=== PATIENT | female | born 1985 | race African-American/Black ===

== ENCOUNTER 2017-03-13 03:01 | Emergency (ER) | payer MEDICARE ==
[~2017-03-13] VITALS: Ht 188 cm; Wt 127.0 kg
[2017-03-13] MEDS ORDERED: KETOROLAC 60MG/2ML VIAL IM ONE (04:00)
[2017-03-13 06:34] VITALS: BP 124/81
== END 2017-03-13 06:45 | disposition home or self-care (01) ==
LOC: ER 03:01
DX: R51 Headache (principal); Z88.5 Allergy status to narcotic agent; Z88.8 Allergy status to other drugs, medicaments and biological substances
CPT/HCPCS: 70450; 96372; 99284; J1885; Z7610

== ENCOUNTER 2017-06-18 23:31 | Emergency (ER) | payer MEDICARE ==
[~2017-06-18] VITALS: Ht 188 cm; Wt 125.0 kg
[2017-06-19] MEDS ORDERED: PREDNISONE 20MG TABLET PO ONE (01:15)
[2017-06-19] MEDS ORDERED: KETOROLAC 60MG/2ML VIAL IM ONE (01:15)
[2017-06-19 01:57] VITALS: BP 107/66
== END 2017-06-19 02:21 | disposition home or self-care (01) ==
LOC: ER 23:31
DX: J03.00 Acute streptococcal tonsillitis, unspecified (principal); J45.909 Unspecified asthma, uncomplicated; Z88.5 Allergy status to narcotic agent; Z88.8 Allergy status to other drugs, medicaments and biological substances; Z88.6 Allergy status to analgesic agent
CPT/HCPCS: 96372; 99283; J1885; J7512

== ENCOUNTER 2018-03-14 23:18 | Emergency (ER) | payer MEDICARE ==
[~2018-03-14] VITALS: Ht 188 cm; Wt 118.0 kg
[2018-03-15] MEDS ORDERED: ONDANSETRON HCL 4MG/2ML INJ IV STA (02:22)
[2018-03-15] MEDS ORDERED: MORPHINE SULFATE 4 MG/ML CPJ (NOT FOR IM USE) IV STA (02:22)
[2018-03-15] MEDS ORDERED: DIPHENHYDRAMINE 50MG/ML VIAL IV ONE (02:30)
[2018-03-15 03:14] LABS: BASOPHILS % 0.7 % (0.0-2.0); EOSINOPHILS % 1.8 % (0.0-5.0); HEMATOCRIT. 44.3 % (36.0-48.0); HEMOGLOBIN. 14.8 g/dL (12.0-16.0); LYMPHOCYTES % 21.5 % (20.0-50.0); MEAN CORPUSCULAR HEMOGLOBIN 31.1 pg (28.0-32.0); MEAN CORPUSCULAR VOLUME 93.2 fL (81.0-99.0); MEAN PLATELET VOLUME 8.7 fl (7.4-10.4); PLATELET 216 x1000/uL (130-400); RED BLOOD CELL COUNT 4.75 mill/uL (4.2-5.4); RED CELL DISTRIBUTION WIDTH 13.9 % (11.6-14.6)
[2018-03-15 03:21] LABS: CHLORIDE 104 mEq/L (98-107)
[2018-03-15] MEDS ORDERED: SODIUM CHLORIDE 0.9% 1,000 ML IV ONE (05:16)
[2018-03-15 05:50] LABS: CLARITY URINE CLOUDY (CLEAR); COLOR URINE YELLOW (YELLOW); KETONES URINE NEGATIVE (NEGATIVE); LEUKOCYTE ESTERASE URINE NEGATIVE (NEGATIVE); NITRITE URINE NEGATIVE (NEGATIVE); OCCULT BLOOD URINE NEGATIVE (NEGATIVE); PH URINE 5.5 (4.5-8.0); PROTEIN URINE NEGATIVE (NEGATIVE); SPECIFIC GRAVITY URINE 1.023 (1.005-1.030); UROBILINOGEN URINE 0.2 E.U./dL (0.2-1.0)
[2018-03-15] MEDS ORDERED: VISCOUS LIDOCAINE 2% 15 ML UDC MM STA (06:05)
[2018-03-15 06:47] VITALS: BP 121/75
== END 2018-03-15 06:49 | disposition home or self-care (01) ==
LOC: ER 23:30
DX: J06.9 Acute upper respiratory infection, unspecified (principal); H92.03 Otalgia, bilateral; R03.0 Elevated blood-pressure reading, without diagnosis of hypertension; Z88.5 Allergy status to narcotic agent
CPT/HCPCS: 36415; 71045; 80053; 81003; 81025; 85025; 87804; 96374; 96375; 99285; J1200; J2270; J2405; J7030

== ENCOUNTER 2018-07-21 13:10 | Emergency (ER) | payer MEDICARE ==
[~2018-07-21] VITALS: Ht 188 cm; Wt 118.0 kg
[2018-07-21 15:45] VITALS: BP 103/66
== END 2018-07-21 16:47 | disposition left against medical advice (07) ==
LOC: ER 16:01
DX: Z53.21 Procedure and treatment not carried out due to patient leaving prior to being seen by health care provider (principal)

== ENCOUNTER 2019-09-30 07:34 | Emergency (ER) | payer MEDICARE ==
[~2019-09-30] VITALS: Ht 193 cm; Wt 118.0 kg
[2019-09-30] MEDS ORDERED: ASPI-1497 PO (07:50)
[2019-09-30] MEDS ORDERED: ACETAMINOPHEN 500MG TABLET PO ONE (10:00)
[2019-09-30 10:03] VITALS: BP 110/59
== END 2019-09-30 10:06 | disposition home or self-care (01) ==
LOC: ER 07:34
DX: O99.89 Other specified diseases and conditions complicating pregnancy, childbirth and the puerperium (principal); M79.661 Pain in right lower leg; Z3A.14 14 weeks gestation of pregnancy; O09.522 Supervision of elderly multigravida, second trimester; Z88.5 Allergy status to narcotic agent; Z88.6 Allergy status to analgesic agent; Z88.8 Allergy status to other drugs, medicaments and biological substances
CPT/HCPCS: 93971; 99284

== ENCOUNTER 2019-10-24 03:51 | Emergency (ER) | payer MEDICARE ==
[~2019-10-24] VITALS: Ht 188 cm; Wt 143.0 kg
[~2019-10-24 03:51] MED LIST: ASPI-1497 PO
[2019-10-24 04:34] LABS: BASOPHILS % 0.6 % (0.0-2.0); EOSINOPHILS % 0.7 % (0.0-5.0); HEMATOCRIT. 35.8 % (36.0-48.0); HEMOGLOBIN. 12.5 g/dL (12.0-16.0); LYMPHOCYTES % 20.4 % (20.0-50.0); MEAN CORPUSCULAR HEMOGLOBIN 31.8 pg (28.0-32.0); MEAN CORPUSCULAR VOLUME 91.2 fL (81.0-99.0); MEAN PLATELET VOLUME 8.4 fl (7.4-10.4); MONOCYTES % 5.6 % (2.0-8.0); NEUTROPHILS % 72.7 % (40.0-76.0); PLATELET 221 x1000/uL (130-400); RED BLOOD CELL COUNT 3.92 mill/uL (4.2-5.4); RED CELL DISTRIBUTION WIDTH 13.6 % (11.6-14.6)
[2019-10-24 04:35] LABS: CHLORIDE 106 mEq/L (98-107)
[2019-10-24 05:00] LABS: B-HCG QUANTITATIVE 16828 mIU/mL (<3)
[2019-10-24 05:42] LABS: CLARITY URINE CLEAR (CLEAR); COLOR URINE YELLOW (YELLOW); KETONES URINE NEGATIVE (NEGATIVE); LEUKOCYTE ESTERASE URINE NEGATIVE (NEGATIVE); NITRITE URINE NEGATIVE (NEGATIVE); OCCULT BLOOD URINE NEGATIVE (NEGATIVE); PROTEIN URINE NEGATIVE (NEGATIVE); SPECIFIC GRAVITY URINE 1.012 (1.005-1.030); UROBILINOGEN URINE 0.2 E.U./dL (0.2-1.0)
[2019-10-24] MEDS ORDERED: DIPHENHYDRAMINE 50MG/ML VIAL IV ONE ×3 (06:45→12:30)
[2019-10-24] MEDS ORDERED: MORPHINE SULFATE 2 MG/ML CPJ (NOT FOR IM USE) IV ONE (06:45)
[2019-10-24] MEDS ORDERED: ONDANSETRON HCL 4MG/2ML INJ IV ONE ×2 (06:45→08:30)
[2019-10-24 07:53] LABS: *BENZODIAZEPINES SCREEN URINE NEGATIVE (NEGATIVE); *COCAINE SCREEN URINE NEGATIVE (NEGATIVE)
[2019-10-24 07:54] LABS: *BARBITURATES SCREEN URINE NEGATIVE (NEGATIVE); CANNABINOID URINE SCREEN NEGATIVE (NEGATIVE); METHADONE URINE SCREEN NEGATIVE (NEGATIVE); OPIATES URINE SCREEN NEGATIVE (NEGATIVE); PHENCYCLIDINE URINE SCREEN NEGATIVE (NEGATIVE)
[2019-10-24 07:55] LABS: *AMPHETAMINES SCREEN URINE NEGATIVE (NEGATIVE)
[2019-10-24] MEDS ORDERED: MORPHINE SULFATE 4 MG/ML CPJ (NOT FOR IM USE) IV ONE ×2 (08:30→12:15)
[2019-10-24] MEDS ORDERED: SODIUM CHLORIDE 0.9% 1,000 ML IV ONE (08:30)
[2019-10-24] MEDS ORDERED: CEFTRIAXONE 1 G PREMIX 50 ML IV ONE (10:00)
[2019-10-24] MEDS ORDERED: SUMATRIPTAN SUCCINATE 25MG TABLET PO ONE (11:45)
[2019-10-24 16:08] VITALS: BP 114/66
== END 2019-10-24 16:45 | disposition home or self-care (01) ==
LOC: ER 03:51 → CANBEDREQ 21:15
DX: O26.892 Other specified pregnancy related conditions, second trimester (principal); R51 Headache; R10.31 Right lower quadrant pain; Z3A.18 18 weeks gestation of pregnancy
CPT/HCPCS: 36415; 76805; 80053; 80305; 81003; 84702; 85025; 86850; 86900; 86901; 96365; 96375; 96376; 99285; J0696; J1200; J2270; J2405

== ENCOUNTER 2020-08-16 14:25 | Emergency (ER) | payer MEDICARE ==
[~2020-08-16] VITALS: Ht 188 cm; Wt 172.0 kg
[2020-08-16 15:37] LABS: BASOPHILS % 0.9 % (0.0-2.0); EOSINOPHILS % 0.9 % (0.0-5.0); HEMATOCRIT. 41.1 % (36.0-48.0); HEMOGLOBIN. 13.5 g/dL (12.0-16.0); LYMPHOCYTES % 30.7 % (20.0-50.0); MEAN CORPUSCULAR HEMOGLOBIN 28.6 pg (28.0-32.0); MEAN CORPUSCULAR VOLUME 86.9 fL (81.0-99.0); MEAN PLATELET VOLUME 8.9 fl (7.4-10.4); MONOCYTES % 3.1 % (2.0-8.0); NEUTROPHILS % 64.4 % (40.0-76.0); PLATELET 239 x1000/uL (130-400); RED BLOOD CELL COUNT 4.73 mill/uL (4.2-5.4); RED CELL DISTRIBUTION WIDTH 15.7 % (11.6-14.6)
[2020-08-16 15:41] LABS: CHLORIDE 108 mEq/L (98-107)
[2020-08-16 15:47] LABS: ETHANOL BLOOD < 10 mg/dL
[2020-08-16 15:49] LABS: CREATINE KINASE 156 IU/L (26-192)
[2020-08-16 16:02] LABS: CLARITY URINE CLEAR (CLEAR); COLOR URINE YELLOW (YELLOW); KETONES URINE NEGATIVE (NEGATIVE); LEUKOCYTE ESTERASE URINE NEGATIVE (NEGATIVE); NITRITE URINE NEGATIVE (NEGATIVE); OCCULT BLOOD URINE 1+ (NEGATIVE); PH URINE 7.5 (4.5-8.0); PROTEIN URINE TRACE (NEGATIVE); SPECIFIC GRAVITY URINE 1.027 (1.005-1.030)
[2020-08-16 16:25] LABS: *AMPHETAMINES SCREEN URINE NEGATIVE (NEGATIVE); PHENCYCLIDINE URINE SCREEN NEGATIVE (NEGATIVE)
[2020-08-16 16:26] LABS: *BARBITURATES SCREEN URINE NEGATIVE (NEGATIVE); *BENZODIAZEPINES SCREEN URINE NEGATIVE (NEGATIVE); *COCAINE SCREEN URINE NEGATIVE (NEGATIVE); CANNABINOID URINE SCREEN NEGATIVE (NEGATIVE); METHADONE URINE SCREEN NEGATIVE (NEGATIVE)
[2020-08-16 16:41] LABS: OPIATES URINE SCREEN PRESUMTIVE POSITIVE (NEGATIVE)
[2020-08-16] MEDS ORDERED: MAGNESIUM 2 G PREMIX 50 ML IV ONE (16:45)
[2020-08-16] MEDS ORDERED: LABETALOL 5MG/ML SYR 20 MG/4 ML SYRINGE IV ONE (16:45)
[2020-08-16] MEDS ORDERED: METOCLOPRAMIDE HCL 10MG/2ML VIAL IV ONE (16:45)
[2020-08-16] MEDS ORDERED: VALPROATE SODIUM 500 MG in DEXT 5% WATER 100 ML IV ONE (18:45)
[2020-08-16] MEDS ORDERED: MORPHINE SULFATE 4 MG/ML CPJ (NOT FOR IM USE) IV STA (20:20)
[2020-08-16] MEDS ORDERED: ONDANSETRON HCL 4MG/2ML INJ IV STA (20:20)
[2020-08-16] MEDS ORDERED: DIPHENHYDRAMINE 50MG/ML VIAL IV ONE (20:30)
[2020-08-16 21:35] VITALS: BP 118/78
== END 2020-08-16 22:24 | disposition short-term general hospital (02) ==
LOC: ER 14:30
DX: R51.9 Headache, unspecified (principal); I10 Essential (primary) hypertension; Z88.6 Allergy status to analgesic agent; Z88.5 Allergy status to narcotic agent; Z98.890 Other specified postprocedural states
CPT/HCPCS: 29125; 36415; 70450; 71045; 73110; 73630; 80053; 80305; 80320; 81003; 81025; 82140; 82550; 83605; 83690; 84443; 85025; 86850; 86900; 86901; 93005; 96365; 96367; 96375; 99285; J1200; J2270; J2405; J2765; J3475; J3490; J7060; Z7610; A4565; G0480